=== PATIENT | male | born 1955 | race Caucasian/White ===

== ENCOUNTER 2017-12-02 15:28 | Inpatient (IN) | payer BC, OTHER ==
[2017-12-02] MEDS ORDERED: ASPIRIN 81 MG CHEWABLE TABLET ONE (16:24)
[2017-12-02] MEDS ORDERED: NA CHLORIDE 0.9% 500 ML ONE (16:24)
[2017-12-02 16:25] LABS: Absolute Lymphocytes (CBC) 1.4 K/uL (0.7-4.9); Absolute Monocytes 0.6 K/uL (0.1-1.3); Absolute Neutrophil 4.8 K/uL (1.8-8.0); Basophils % 0.5 % (0-1.3); Eosinophils % 0.9 % (0-4.4); Hematocrit 41.1 % (39.6-49.0); Lymphocytes % 20.7 % (15.3-44.8); MCH 29.7 pg (27.0-35.0); MCV 89.1 fL (80-100); MPV 8.6 fL (7.6-11.3); Monocytes % 8.6 % (3.3-12.3)
[2017-12-02 16:31] LABS: Protime INR 1.11
--- NOTE | 2017-12-02 16:32 | RAD REPORT ---
EXAM DESCRIPTION: RAD - Chest Single View - 12/02/2017 4:24 pm CLINICAL HISTORY: Chest pain. COMPARISON: None. FINDINGS: Portable technique limits examination quality. The lungs are grossly clear. The heart is upper limit normal in size with dual lead pacer/defibrillat or device present. No displaced fractures.Sternotomy wires present. IMPRESSION: No acute intrathoracic process suspected.
[2017-12-02 16:42] LABS: Urine Blood NEGATIVE (NEG); Urine Glucose NEGATIVE (NEG); Urine Protein NEGATIVE (NEG); Urine Specific Gravity 1.015 (1.005-1.030)
[2017-12-02 16:45] LABS: Potassium 4.1 mEq/L (3.6-5.0)
[2017-12-02 16:51] LABS: Albumin 4.5 g/dL (3.2-5.5); Bilirubin Direct 0.1 mg/dL (0-0.2); Bilirubin Total 0.6 mg/dL (0.3-1.2)
[2017-12-02 16:54] LABS: CKMB Creatine Kinase MB 2.6 ng/ml (0.3-4.0)
--- NOTE | 2017-12-02 16:56 | ER ---
Nurse's Notes [facility] Name: Kingston Garcia Age: 62 yrs Sex: Male : 1955 Arrival Date: 12/02/2017 Time: 15:32 Bed 7 Private MD: Diagnosis: Chest pain, unspecified;Essential (primary) hypertension;Weakness;Dizziness and giddiness;Ventricular tachycardia Presentation: 12/02 15:33 Presenting complaint: Patient states: Sunday, my defibrillator went off, since then i hj feel weak and dizzy; when i check my BP today, it was high, 167/92; denies chest pain and denies SOB;. Transition of care: patient was not received from another setting of care. Onset of symptoms was December 02, 2017. Care prior to arrival: None. 15:33 Method Of Arrival: Ambulatory 15:33 Acuity: AYALA 3 hj Triage Assessment: 15:36 General: Appears in no apparent distress. uncomfortable, Behavior is calm, cooperative, hj appropriate for age. Pain: Denies pain. Historical: - Allergies: 15:36 No Known Allergies; hj - Home Meds: 15:36 carvedilol 3.125 mg oral tab 1 tab 2 times per day [Active]; simvastatin 40 mg Oral tab hj 1 tab once daily [Active]; clopidogrel 75 mg oral tab 1 tab once daily [Active]; lisinopril 5 mg Oral tab 1 tab once daily [Active]; - PMHx: 15:36 Hyperlipidemia; Hypertension; hj - PSHx: 15:36 pacemaker; hj - Immunization history:: Adult Immunizations up to date. - Social history:: Smoking status: Patient/guardian denies using tobacco. Screenin:28 Abuse screen: Denies threats or abuse. Denies injuries from another. Nutritional hb screening: No deficits noted. Tuberculosis screening: No symptoms or risk factors identified. Fall Risk Total Iniguez Fall Scale indicates Low Risk Score (25-44 pts). Fall prevention measures have been instituted. Frequent Obs/Assesments occuring As available Patient and Family Educated on Fall Prevention Program and strategies. Assessment: 16:05 General: Appears in no apparent distress. Behavior is calm, cooperative. Pain: Denies hb pain. Neuro: Level of Consciousness is awake, alert, obeys commands, Oriented to person, place, time, situation, Mold Tooler are equal bilaterally Moves all extremities. Full function Gait is steady, Speech is normal, Facial symmetry appears normal, Pupils are PERRLA, Intact Reports dizziness, weakness. Cardiovascular: Heart tones S1 S2 present Capillary refill < 3 seconds Patient's skin is warm and dry. Respiratory: Airway is patent Trachea midline Respiratory effort is even, unlabored, Respiratory pattern is regular, symmetrical, Breath sounds are clear bilaterally. GI: No signs and/or symptoms were reported involving the gastrointestinal system. : No signs and/or symptoms were reported regarding the genitourinary system. EENT: No signs and/or symptoms were reported regarding the EENT system. Derm: No signs and/or symptoms reported regarding the dermatologic system. Skin is pink, warm \T\ dry. Musculoskeletal: No signs and/or symptoms reported regarding the musculoskeletal system. 17:00 Reassessment: Patient appears in no apparent distress at this time. No changes from hb previously documented assessment. Patient and/or family updated on plan of care and expected duration. Pain level reassessed. Patient is alert, oriented x 3, equal unlabored respirations, skin warm/dry/pink. Vital Signs: 15:37 BP 151 / 89; Pulse 86; Resp 18; Temp 98.3(TE); Pulse Ox 100% on R/A; Weight 79.38 kg; hj Height 5 ft. 10 in. (177.80 cm); Pain 0/10; 16:30 BP 136 / 84; Pulse 84; Resp 17; Pulse Ox 100% on R/A; Pain 0/10; hb 15:37 Body Mass Index 25.11 (79.38 kg, 177.80 cm) ED Course: 15:32 Patient arrived in ED. hj 15:34 Triage completed. hj 15:36 Arm band placed on left wrist. hj 15:40 Keyur Ramirez MD is Attending Physician. oswaldo 15:55 notified [employer] to send out a client service representative out to [employer] pts device. bd 16:05 Patient has correct armband on for positive identification. Bed in low position. Call hb light in reach. Side rails up X 1. software database architect on. Pulse ox on. NIBP on. 16:15 Inserted saline lock: 20 gauge in right forearm, using aseptic technique. Blood hb collected. 16:21 Michelle Palomo RN is Primary Nurse. hb 16:23 X-ray completed. Portable x-ray completed in exam room. Patient tolerated procedure jw2 well. 16:24 XRAY Chest (1 view) In Process Unspecified. EDMS 16:54 Uvaldo Ortiz MD is Hospitalizing Provider. [facility] 18:00 No provider procedures requiring assistance completed. Patient admitted, IV remains in hb place. Administered Medications: 16:19 Drug: Aspirin 81 mg Route: PO; hb 17:27 Follow up: Response: No adverse reaction hb 16:29 Drug: NS 0.9% 250 ml Route: IV; Rate: bolus; Site: right forearm; hb 17:15 Follow up: Response: No change in condition; IV Status: Completed infusion hb 17:16 Drug: NS 0.9% 1000 ml Route: IV; Rate: 75 ml/hr; Site: right forearm; hb 17:27 Drug: Coreg 3.125 mg Route: PO; hb 17:50 Follow up: Response: No change in condition hb 17:27 Drug: Lovenox 1 mg/kg Route: Sub-Q; Site: abdomen; hb 17:50 Follow up: Response: No change in condition hb 17:27 Drug: Lisinopril 5 mg Route: PO; hb 17:50 Follow up: Response: No change in condition hb Outcome: 16:55 Decision to Hospitalize by Provider. oswaldo 18:00 Patient left the ED. aj1 18:00 Admitted to Med/surg accompanied by tech, via wheelchair, room 229, with chart, Report hb called to LAZARA Barton 18:00 Condition: stable 18:00 Instructed on the need for admit, Demonstrated understanding of instructions. Signatures: Dispatcher [employer] EDMI Lula Roberts Angela, RN RN aj1 Keyur Ramirez MD MD cha Joaquin, Henry, RN RN hj Wailes, Jenni jw2 Michelle Palomo RN RN hb Corrections: (The following items were deleted from the chart) 18:12 18:00 Admitted to Med/surg accompanied by tech, via wheelchair, room 228, with chart, hb Report called to LAZARA Barton hb
--- NOTE | 2017-12-02 16:56 | EDPHYS ---
Physician Documentation [facility] Name: Kingston Garcia Age: 62 yrs Sex: Male : 1955 Arrival Date: 12/02/2017 Time: 15:32 Bed 7 Private MD: ED Physician Keyur Ramirez HPI: 12/02 15:46 This 62 yrs old Male presents to ER via Ambulatory with complaints of High oswaldo Blood Pressure, Weakness, Dizziness. 15:46 The patient has elevated blood pressure and discovered this at home. Onset: The oswaldo symptoms/episode began/occurred 3 day(s) ago. Historical: - Allergies: 15:36 No Known Allergies; hj - Home Meds: 15:36 carvedilol 3.125 mg oral tab 1 tab 2 times per day [Active]; simvastatin 40 mg Oral tab hj 1 tab once daily [Active]; clopidogrel 75 mg oral tab 1 tab once daily [Active]; lisinopril 5 mg Oral tab 1 tab once daily [Active]; - PMHx: 15:36 Hyperlipidemia; Hypertension; hj - PSHx: 15:36 pacemaker; hj - Immunization history:: Adult Immunizations up to date. - Social history:: Smoking status: Patient/guardian denies using tobacco. ROS: 15:47 Constitutional: Negative for fever, chills, and weight loss, Eyes: Negative for injury, oswaldo pain, redness, and discharge, ENT: Negative for injury, pain, and discharge, Neck: Negative for injury, pain, and swelling, Respiratory: Negative for shortness of breath, cough, wheezing, and pleuritic chest pain, Abdomen/GI: Negative for abdominal pain, nausea, vomiting, diarrhea, and constipation, Back: Negative for injury and pain, : Negative for injury, bleeding, discharge, and swelling, MS/Extremity: Negative for injury and deformity, Skin: Negative for injury, rash, and discoloration, Psych: Negative for depression, anxiety, suicide ideation, homicidal ideation, and hallucinations, Allergy/Immunology: Negative for hives, rash, and allergies, Endocrine: Negative for neck swelling, polydipsia, polyuria, polyphagia, and marked weight changes, Hematologic/Lymphatic: Negative for swollen nodes, abnormal bleeding, and unusual bruising. 15:47 Cardiovascular: Positive for palpitations. 15:47 Neuro: Positive for dizziness, weakness. Exam: 15:47 Constitutional: This is a well developed, well nourished patient who is awake, alert, oswaldo and in no acute distress. Head/Face: Normocephalic, atraumatic. Eyes: Pupils equal round and reactive to light, extra-ocular motions intact. Lids and lashes normal. Conjunctiva and sclera are non-icteric and not injected. Cornea within normal limits. Periorbital areas with no swelling, redness, or edema. ENT: Nares patent. No nasal discharge, no septal abnormalities noted. Tympanic membranes are normal and external auditory canals are clear. Oropharynx with no redness, swelling, or masses, exudates, or evidence of obstruction, uvula midline. Mucous membranes moist. Neck: Trachea midline, no thyromegaly or masses palpated, and no cervical lymphadenopathy. Supple, full range of motion without nuchal rigidity, or vertebral point tenderness. No Meningismus. Chest/axilla: Normal chest wall appearance and motion. Nontender with no deformity. No lesions are appreciated. Cardiovascular: Regular rate and rhythm with a normal S1 and S2. No gallops, murmurs, or rubs. Normal PMI, no JVD. No pulse deficits. Respiratory: Lungs have equal breath sounds bilaterally, clear to auscultation and percussion. No rales, rhonchi or wheezes noted. No increased work of breathing, no retractions or nasal flaring. Abdomen/GI: Soft, non-tender, with normal bowel sounds. No distension or tympany. No guarding or rebound. No evidence of tenderness throughout. Back: No spinal tenderness. No costovertebral tenderness. Full range of motion. Male : Normal genitalia with no discharge or lesions. Skin: Warm, dry with normal turgor. Normal color with no rashes, no lesions, and no evidence of cellulitis. MS/ Extremity: Pulses equal, no cyanosis. Neurovascular intact. Full, normal range of motion. Neuro: Awake and alert, GCS 15, oriented to person, place, time, and situation. Cranial nerves II-XII grossly intact. Motor strength 5/5 in all extremities. Sensory grossly intact. Cerebellar exam normal. Normal gait. Psych: Awake, alert, with orientation to person, place and time. Behavior, mood, and affect are within normal limits. Vital Signs: 15:37 BP 151 / 89; Pulse 86; Resp 18; Temp 98.3(TE); Pulse Ox 100% on R/A; Weight 79.38 kg; hj Height 5 ft. 10 in. (177.80 cm); Pain 0/10; 16:30 BP 136 / 84; Pulse 84; Resp 17; Pulse Ox 100% on R/A; Pain 0/10; hb 15:37 Body Mass Index 25.11 (79.38 kg, 177.80 cm) hj MDM: 15:40 Patient medically screened. [facility] 15:47 Data reviewed: vital signs, nurses notes, lab test result(s), EKG, radiologic studies, oswaldo plain films. 12/02 15:46 Order name: Basic Metabolic Panel [facility] 12/02 15:46 Order name: BNP [facility] 12/02 15:46 Order name: CBC with Diff [facility] 12/02 15:46 Order name: Ckmb; Complete Time: 17:04 [facility] 12/02 15:46 Order name: CPK; Complete Time: 17:04 [facility] 12/02 15:46 Order name: LFT's; Complete Time: 17:04 [facility] 12/02 15:46 Order name: Magnesium; Complete Time: 17:04 [facility] 12/02 15:46 Order name: PT-INR; Complete Time: 16:35 [facility] 12/02 15:46 Order name: Ptt, Activated; Complete Time: 16:35 [facility] 12/02 15:46 Order name: Troponin (emerg Dept Use Only); Complete Time: 16:52 [facility] 12/02 15:46 Order name: Lipase; Complete Time: 17:04 [facility] 12/02 15:47 Order name: Basic Metabolic Panel; Complete Time: 17:04 [facility] 12/02 15:47 Order name: BNP B-Type Natriuretic Peptide [facility] 12/02 15:47 Order name: CBC with Automated Diff; Complete Time: 16:31 [facility] 12/02 15:46 Order name: XRAY Chest (1 view); Complete Time: 16:35 [facility] 12/02 15:46 Order name: EKG; Complete Time: 15:47 [facility] 12/02 15:46 Order name: Cardiac monitoring; Complete Time: 16:29 [facility] 12/02 15:46 Order name: EKG - Nurse/Tech; Complete Time: 16:29 [facility] 12/02 15:46 Order name: IV Saline Lock; Complete Time: 16:19 [facility] 12/02 15:46 Order name: Labs collected and sent; Complete Time: 16:19 oswaldo 12/02 15:46 Order name: O2 Per Protocol; Complete Time: 16:19 [facility] 12/02 16:36 Order name: Urine Dipstick--Ancillary (enter results); Complete Time: 16:52 bd 12/02 16:58 Order name: CONS Physician Consult [facility] 12/02 17:32 Order name: Diet Heart Healthy; Complete Time: 17:32 hb 12/02 15:46 Order name: O2 Sat Monitoring; Complete Time: 16:19 [facility] 12/02 15:46 Order name: Urine Dipstick-Ancillary (obtain specimen); Complete Time: 16:36 [facility] Administered Medications: 16:19 Drug: Aspirin 81 mg Route: PO; hb 17:27 Follow up: Response: No adverse reaction hb 16:29 Drug: NS 0.9% 250 ml Route: IV; Rate: bolus; Site: right forearm; hb 17:15 Follow up: Response: No change in condition; IV Status: Completed infusion hb 17:16 Drug: NS 0.9% 1000 ml Route: IV; Rate: 75 ml/hr; Site: right forearm; hb 17:27 Drug: Coreg 3.125 mg Route: PO; hb 17:50 Follow up: Response: No change in condition hb 17:27 Drug: Lovenox 1 mg/kg Route: Sub-Q; Site: abdomen; hb 17:50 Follow up: Response: No change in condition hb 17:27 Drug: Lisinopril 5 mg Route: PO; hb 17:50 Follow up: Response: No change in condition hb Disposition: 12/02/17 16:55 Hospitalization ordered by Uvaldo Ortiz for Inpatient Admission. Preliminary diagnosis are Chest pain, unspecified, Essential (primary) hypertension, Weakness, Dizziness and giddiness, Ventricular tachycardia. - Bed requested for Telemetry/MedSurg (Inpatient). - Status is Inpatient Admission. aj1 - Condition is Fair. - Problem is new. - Symptoms have improved. UTI on Admission? No Signatures: Dispatcher [employer] [facility] Lula Roberts Angela, RN RN aj1 Keyur Ramirez MD MD cha Joaquin, Henry, RN RN Michelle Palomo RN RN hb
[2017-12-02] MEDS ORDERED: ENOXAPARIN 80 MG/0.8 ML SQ ONE (17:43)
[2017-12-02] MEDS ORDERED: CARVEDILOL 6.25 MG TAB ONE (17:43)
[2017-12-02] MEDS ORDERED: LISINOPRIL 5 MG TAB ONE (17:43)
[2017-12-02] MEDS ORDERED: HALOPERIDOL LACT 5 MG/ML INJ IM PRN (18:20)
[2017-12-02] MEDS ORDERED: ACETAMINOPHEN 500 MG TAB PO PRN (18:20)
[2017-12-02] MEDS ORDERED: MORPHINE 4 MG/ML SYR IV PRN (18:20)
[2017-12-02] MEDS ORDERED: FLUMAZENIL 0.1 MG/ML (5 mL VIAL) IV PRN (18:20)
[2017-12-02] MEDS ORDERED: NITROGLYCERIN 0.4 MG/TAB SL PRN (18:20)
[2017-12-02] MEDS ORDERED: LORazepam 2 MG/ML VIAL IV PRN (18:20)
[2017-12-02] MEDS: ENOXAPARIN 40 MG/0.4 ML SQ SCH (18:30)
[2017-12-02] MEDS: ATORVASTATIN 40 MG TAB PO SCH (20:09)
[2017-12-02] MEDS: METOPROLOL TAR 25 MG TAB PO SCH (20:10)
[2017-12-02] MEDS ORDERED: PNEUMOCOCCAL VACCINE 0.5 ML IMVAC ONE (21:00)
[2017-12-02] MEDS ORDERED: INFLUENZA VACCINE (for 5y+) 0.5 ML DOSE IMVAC ONE (21:00)
--- NOTE | 2017-12-03 02:50 | HP ---
Date of Admission: 12/02/2017 Consultants: Dr. Aaron with Cardiology. Chief Complaint: Dizziness and defibrillator firing. History Of Present Illness: The patient is a 62-year-old male with past medical history of coronary artery disease status post CABG, stents, and peripheral vascular disease status post bypass, hypertension, hyperlipidemia, alcohol dependence, who is traveling for work from [place] and was in his usual state of health until Sunday when his defibrillator went off. The patient reports feeling dizzy, almost "blacking out" and he notices felt his defibrillator go off. The patient since then has been complaining of some dizziness and elevated blood pressure. The patient states he feels lightheadedness, especially with positional change. Otherwise, no falls or syncopal episodes. The patient denies any significant chest tightness. The patient came into the ER for further evaluation due to elevated blood pressure. When the patient arrived, his vital signs showed a blood pressure of 151/89. His workup revealed a troponin level of 0.33. Otherwise, his white count was negative. Chest x-ray did not show any acute changes. The patient had his AICD dual chamber evaluated by the [employer] rep and apparently, the patient had ventricular tachycardia in the rate of 200 when his defibrillator went off. The patient's symptoms are constant, moderate, progressively worsening. No alleviating or aggravating factors. The patient was then given full-dose anticoagulation started on chest pain guidelines and referred for admission. Cardiology was consulted by the ER. When seen in the ER, the patient was awake, alert, oriented x3, not in acute distress. Past Medical History: Coronary artery disease status post CABG and stents, peripheral vascular disease status post aortofemoral bypass, hypertension, and hyperlipidemia. Allergies: NO KNOWN DRUG ALLERGIES. Medications: Reviewed. Social History: The patient quit smoking after his first heart attack, smoked for about 25 years heavily. The patient drinks on a regular basis daily about 4 beers a day. No illicit drug use. The patient is active, independent in his activities of daily living, currently working. Family History: Positive for coronary artery disease. Review of Systems: An 11-point system reviewed, negative, negative except as per HPI. Physical Examination: Vital Signs: Temperature 98.3, heart rate 86, blood pressure 151/89, respirations 18, O2 100% on room air. General: Awake, alert, oriented x3. No acute distress. Appears older than stated age. HEENT: Normocephalic, atraumatic. PERRLA. EOMI. Moist mucous membranes. Poor dentition. Oropharynx is clear. The patient does have some erythema on the surrounding mucous, consistent with possible ulceration. Conjunctiva anicteric. Neck: Supple. No JVD. Trachea midline. CV: S1, S2. No murmurs. Peripheral pulses are present bilaterally. Respiratory: Clear to auscultation bilaterally. No wheezing. No stridor. No use of accessory muscles. Gastrointestinal: Abdomen is soft, nontender, nondistended. Positive bowel sounds. No guarding or rigidity. Extremities: No clubbing, cyanosis, or edema. No calf tenderness. Neuro: Cranial nerves 2 through 12 intact grossly, 5/5 strength bilateral upper lower extremities. Sensation intact to light touch. Speech is normal. Integumentary: Skin is warm to touch. No rashes. Normal skin turgor. Psych: Mood is okay. Affect is full. Insight and judgment are good. Laboratory Data: Sodium 138, potassium 4.1, chloride 102, CO2 26, BUN 10, creatinine 1.03, glucose 118, calcium 9.9, magnesium 2. Troponin 0.33. BNP 426. INR 1.11. WBC 7, H and H 13.7/41.1, and platelets 188. UA, negative. Chest x-ray, personally reviewed, shows no acute intrathoracic process suspected. Assessment And Plan: A 62-year-old male with, 1. Dizziness. 2. Elevated troponin level, likely secondary to defibrillator firing. 3. Uncontrolled hypertension. We will resume home medications and add beta- rylee. 4. Ventricular tachycardia with subsequent defibrillator. Discharge has been evaluated by [employer] rep. Dr. Aaron with Cardiology has been consulted. 5. Hyperlipidemia: We will continue on statin. 6. Peripheral vascular disease status post aortobifemoral bypass. 7. Coronary artery disease status post CABG and stent, [place] artery and [place] heart without angina. Plan: Admit the patient to Med-Surg, place as an inpatient. /KASSANDRA Voice ID: [id number] [facility] HOSPITALBobbi
[2017-12-03 03:20] LABS: Absolute Lymphocytes (CBC) 1.9 K/uL (0.7-4.9); Absolute Monocytes 0.6 K/uL (0.1-1.3); Absolute Neutrophil 4.1 K/uL (1.8-8.0); Basophils % 0.8 % (0-1.3); Eosinophils % 1.5 % (0-4.4); Hematocrit 37.1 % (39.6-49.0); Lymphocytes % 28.5 % (15.3-44.8); MCH 30.3 pg (27.0-35.0); MCV 88.8 fL (80-100); MPV 8.4 fL (7.6-11.3); RBC Red Blood Cell Count 4.18 M/uL (4.33-5.43)
[2017-12-03 03:49] LABS: Potassium 3.5 mEq/L (3.6-5.0)
--- NOTE | 2017-12-03 07:59 | EKG ---
Test Date: 2017-12-02 Test Time: 15:22:19 [employer]usement Park Entertainer: SWG MEASUREMENT RESULTS: Intervals: Rate: 81 [place]: 224 QRSD: 130 QT: 434 QTc: 504 [place]: P: [place]: 224 QRS: -55 T: 105 INTERPRETIVE STATEMENTS: Demand pacemaker, interpretation is based on intrinsic rhythm Sinus rhythm with 1st degree AV block with occasional and consecutive premature ventricular complexes Left axis deviation Right bundle branch block Left ventricular hypertrophy with repolarization abnormality Inferior infarct, age undetermined Abnormal ECG No previous ECG available for comparison Electronically Signed On 12-03-17 07:58:41 CDT by Olivier Saldivar
[2017-12-03] MEDS: THIAMINE HCL 100 MG TABLET PO SCH (09:00)
[2017-12-03] MEDS: ENOXAPARIN 40 MG/0.4 ML SQ SCH (09:05)
[2017-12-03] MEDS: FOLIC ACID 1 MG TABLET PO SCH (09:06)
[2017-12-03] MEDS: LISINOPRIL 10 MG TAB PO SCH (09:06)
[2017-12-03] MEDS: CLOPIDOGREL 75 MG TABLET PO SCH (09:06)
[2017-12-03] MEDS: MULTIVITAMIN TAB PO SCH (09:06)
[2017-12-03] MEDS: ASPIRIN EC 81 MG TAB PO SCH (09:06)
[2017-12-03] MEDS: METOPROLOL TAR 25 MG TAB PO SCH ×2 (09:06→21:11)
[2017-12-03] MEDS: PANTOPRAZOLE 40MG TABLET PO SCH (09:09)
--- NOTE | 2017-12-03 11:39 | ECHO ---
HEIGHT: 5 ft 10 in WEIGHT: 175 lb 0 oz DATE OF STUDY: 12-03-[address]: Uvaldo Ortiz MD 2-DIMENSIONAL: YES M.MODE: YES DOPPLER: YES COLOR FLOW: YES TDS: NO PORTABLE: NO DEFINITY: NO BUBBLE STUDY: NO DIAGNOSIS: CHEST PAIN CARDIAC HISTORY: CATHERIZATION: YES SURGERY: YES PROSTHETIC VALVE: NO PACEMAKER: YES MEASUREMENTS (cm) DIASTOLIC (NORMALS) SYSTOLIC (NORMALS) IVSd 1.1 (0.6-1.2) LA Diam 4.4 (1.9-4.0) LVEF 22% LVIDd 6.6 (3.5-5.7) LVIDs 5.9 (2.0-3.5) %FS 10% LVPWd 1.0 (0.6-1.2) Ao Diam 3.1 (2.0-3.7) 2 DIMENSIONAL ASSESSMENT: RIGHT ATRIUM: DILATED LEFT ATRIUM: DILATED RIGHT VENTRICLE: PACEMAKER CATHETER LEFT VENTRICLE: DILATED TRICUSPID VALVE: NORMAL MITRAL VALVE: NORMAL PULMONIC VALVE: NORMAL AORTIC VALVE: NORMAL PERICARDIAL EFFUSION: NONE AORTIC ROOT: NORMAL LEFT VENTRICULAR WALL MOTION: SEVERE GLOBAL HYPOKINESIS DOPPLER/COLOR FLOW: MILD AORTIC, MITRAL AND TRICUSPID REGURGITATION. ESTIMATED RIGHT VENTRICULAR SYSTOLIC PRESSURE 40mmHg. (MILD PULMONARY HYPERTENSION) COMMENTS: DILATED LEFT ATRIUM, RIGHT ATRIAUM AND LEFT VENTRICLE. PACEMAKER IN RIGHT VENTRICLE. SEVERELY DEPRESSED LEFT VENTRICULAR EJECTION FRATION. MILD AORTIC, MITRAL AND TRICUSPID REGURGITATION. MILD PULMONARY HYPERTENSION. TECHNOLOGIST: Pancho
--- NOTE | 2017-12-03 11:57 | CON ---
Identification: A 62-year-old man. Chief Complaint: Blood pressure out of control. History Of Present Illness: Mr. Garcia is a gentleman, who had bypass surgery in the . He has h ad numerous stents. He has had stents for peripheral arterial disease as well. He had stents semi-e mergently when his heart become unstable after peripheral artery stents were tried in 2009 and a defi brillator was implanted and it has not gone off. Until about 6 days ago, it went off. He had done s omething a little bit physically demanding, felt dizzy, felt like he was going to faint and did faint , and then he was awake enough to feel it shocked him and then his dizziness went away. Since that p oint, his defibrillator has been interrogated. It was interrogated yesterday, 5 days after the event , and we could tell that he had monomorphic VT at a rate of 200. Since he has been here, he has not had chest pain, but he does have abnormal cardiac enzymes. His abnormal cardiac enzymes are troponin s, they are 0.33, 0.22, 0.29, even the first 1 was abnormal. His electrocardiogram does not show any injury pattern. It shows that there is an AV sequential pacing. There was intermittent atrial and ventricular pacing and lot of PVCs. There was right bundle-branch block, left ventricular hypertroph y, and inferior infarction. His echocardiogram was being done while I was present. His EF is in the 25% range. There appeared to be global hypokinesis. He normally lives in [place]. His bypass surg gabriela, stents, and defibrillator all were put in [place]. He intends to live in the [place] area to be o n a construction project or from 2-5 years. Outpatient Medications: Carvedilol, aspirin, simvastatin, lisinopril, omeprazole, and clopidogrel. Allergies: HE DENIES ANY ALLERGIES. Social History: He denies tobacco use, although he did smoke until 1995 when he had his MD and bypas s surgery. Past Medical History: No history of malignancy, hormone problems. No diabetes. Physical Examination: General: He is 5 feet 10 inches, 175 pounds. Appears to be his stated age. Alert, oriented, pleasa nt. Lungs: Clear. Heart: Reveals an S3 gallop. There is a 1 to 2/6 holosystolic murmur. No diastolic murmur. Extremities: No cyanosis, clubbing, or edema. Distal pulses palpable. Impression: The patient may have had an acute coronary event that caused this. The elevated enzymes may be due to that or due to the shock itself. The cause for the ventricular tachycardia is unclear . I think the patient needs to undergo a cardiac cath, possible revascularization, and needs to esta blish cardiac care in the area. He may have already established care with a physician in [place], but has not seen him yet. YOU/KASSANDRA Voice ID: [id number] Report ID: [id number]
--- NOTE | 2017-12-03 15:52 | P.PN ---
Subjective Date of Service: 12/03/17 Chief Complaint: Weakness Patient seen and examined at bedside with RN. Case discussed with cardiology. Currently patient has no complaints to offer. denies having any chest pain at this time. He has been scheduled for cardiac catheterization tomorrow morning Review of Systems General: As per HPI Physical Examination - Vital Signs Temperature: 96.8 F Blood Pressure: 124/65 Pulse: 67 Respirations: 16 Pulse Ox (%): 95 - Physical Exam General: Alert, In no apparent distress, Oriented x3 HEENT: Atraumatic, PERRLA, EOMI Neck: Supple, JVD not distended Respiratory: Clear to auscultation bilaterally, Normal air movement Cardiovascular: Regular rate/rhythm, Normal S1 S2 Gastrointestinal: Normal bowel sounds, No tenderness Musculoskeletal: No tenderness Integumentary: No rashes Neurological: Normal speech, Normal tone, Normal affect Lymphatics: No axilla or inguinal lymphadenopathy - Studies Laboratory Data (last 24 hrs) 12/02/17 16:15: PT 13.1 H, INR 1.11, APTT 27.7 12/02/17 16:15: WBC 7.0, Hgb 13.7, Hct 41.1, Plt Count 188 12/02/17 16:15: B-Natriuretic Peptide 426 H 12/02/17 16:15: Sodium 138, Potassium 4.1, BUN 10, Creatinine 1.03, Glucose 118 , Magnesium 2.0, Total Bilirubin 0.6, AST 31, ALT 18, Alkaline Phosphatase 57, Lipase 27 Medications List Reviewed: Yes Assessment & Plan - Problems (Diagnosis) (1) NSTEMI (non-ST elevated myocardial infarction) Current Visit: Yes Status: Acute Plan: Elevated troponin with Nonspecific ST changes -Cardiology consulted. Appreciated Reccs -Cardiac Cath petey AM -ECHO with EF of 23% and Global Hypokensis -Defribillator in place. -ACS meds (2) CHF (congestive heart failure) Current Visit: Yes Status: Chronic Qualifiers: Heart failure type: combined systolic and diastolic Heart failure chronicity: acute on chronic Qualified Code(s): I50.43 - Acute on chronic combined systolic (congestive) and diastolic (congestive) heart failure (3) Defibrillator discharge Current Visit: Yes Status: Acute (4) Hypertension Onset Date: 12/03/17 Current Visit: Yes Status: Chronic Qualifiers: Hypertension type: essential hypertension Qualified Code(s): I10 - Essential (primary) hypertension Discharge Plan: Home Plan to discharge in: 24 Hours - Code Status/Comfort Care Code Status Assessed: Yes Critical Care: No
[2017-12-03] MEDS ORDERED: POTASSIUM 25 MEQ EFFERV TAB PO ONE (17:53)
[2017-12-03] MEDS: ATORVASTATIN 40 MG TAB PO SCH (21:11)
[2017-12-04] MEDS ORDERED: NA CHLORIDE 0.9% 1,000 ML ONE (05:08)
[2017-12-04 06:14] LABS: Magnesium 2.1 mg/dL (1.8-2.5); Potassium 4.1 mEq/L (3.6-5.0)
[2017-12-04] MEDS ORDERED: LIDOCAINE 1% 20 ML MDV ONE (07:13)
[2017-12-04] MEDS ORDERED: HEPA 1000U/500MLS 2,000 UNIT/1,000 ML BAG IV ONE (07:13)
[2017-12-04] MEDS: PANTOPRAZOLE 40MG TABLET PO SCH (07:30)
[2017-12-04] MEDS ORDERED: FENTANYL CITR 100 MCG/2 ML ONE (08:01)
[2017-12-04] MEDS ORDERED: NA CHLORIDE 0.9% 0 ML IV ONE (08:01)
[2017-12-04] MEDS ORDERED: ATROPINE SULF 1 MG/10 ML SYR IV ONE (08:01)
[2017-12-04] MEDS ORDERED: MIDAZOLAM HCL 2 MG/2 ML INJ ONE ×2 (08:01→08:17)
[2017-12-04] MEDS: LISINOPRIL 10 MG TAB PO SCH (09:00)
[2017-12-04] MEDS: METOPROLOL TAR 25 MG TAB PO SCH (09:00)
[2017-12-04] MEDS: FOLIC ACID 1 MG TABLET PO SCH (09:00)
[2017-12-04] MEDS: THIAMINE HCL 100 MG TABLET PO SCH (09:00)
[2017-12-04] MEDS: ENOXAPARIN 40 MG/0.4 ML SQ SCH (09:00)
[2017-12-04] MEDS: MULTIVITAMIN TAB PO SCH (09:00)
[2017-12-04] MEDS: ASPIRIN EC 81 MG TAB PO SCH (09:00)
[2017-12-04] MEDS: CLOPIDOGREL 75 MG TABLET PO SCH (09:00)
--- NOTE | 2017-12-04 17:22 | P.DS ---
Admission Date: 12/02/17 Discharge Date: 12/04/17 Disposition: ROUTINE DISCHARGE Discharge Condition: GOOD Reason for Admission: Weakness Consultations: Cardiology - Dr Aaron Procedures: Cardiac Catherization - Problems (1) NSTEMI (non-ST elevated myocardial infarction) Status: Acute (2) CHF (congestive heart failure) Status: Chronic Qualifiers: Heart failure type: combined systolic and diastolic Heart failure chronicity: acute on chronic Qualified Code(s): I50.43 - Acute on chronic combined systolic (congestive) and diastolic (congestive) heart failure (3) Defibrillator discharge Status: Acute (4) Hypertension Onset Date: 12/03/17 Status: Chronic Qualifiers: Hypertension type: essential hypertension Qualified Code(s): I10 - Essential (primary) hypertension Brief History of Present Illness: The patient is a 62-year-old male with past medical history of coronary artery disease status post CABG, stents, and peripheral vascular disease status post bypass, hypertension, hyperlipidemia, alcohol dependence, who is traveling for work from [place] and was in his usual state of health until Sunday when his defibrillator went off. The patient reports feeling dizzy, almost "blacking out " and he notices felt his defibrillator go off. The patient since then has been complaining of some dizziness and elevated blood pressure. The patient states he feels lightheadedness, especially with positional change. Otherwise, no falls or syncopal episodes. The patient denies any significant chest tightness. The patient came into the ER for further evaluation due to elevated blood pressure. When the patient arrived, his vital signs showed a blood pressure of 151/89. His workup revealed a troponin level of 0.33. Otherwise, his white count was negative. Chest x-ray did not show any acute changes. The patient had his AICD dual chamber evaluated by the [employer] rep and apparently, the patient had ventricular tachycardia in the rate of 200 when his defibrillator went off. The patient's symptoms are constant, moderate, progressively worsening. No alleviating or aggravating factors. The patient was then given full-dose anticoagulation started on chest pain guidelines and referred for admission. Cardiology was consulted by the ER. When seen in the ER, the patient was awake, alert, oriented x3, not in acute Hospital Course: Is overall patient remained stable while here in the hospital Patient was initially admitted to the hospital for an NSTEMI and Vtach. Cardiology was consulted who did a cardiac catheterization on the patient. Patient was found to have severe stenosis of the coronary arteries as outlined by the cardiac catheterization report. Patient risk of surgery however outweighs the benefit and thus medical management was choosen. Patient was started on a beta-rylee statin and MARSHA-inhibitor along with aspirin and Plavix. Patient was also asked to make diet modification along with medication compliance. Patient was then discharged home to follow up with cardiology in the clinic in about 1 week. At that time patient will be referred to an EP physician in [place]. Patient was thus discharged home under stable condition with prescriptions for beta-rylee staff inhibitor and follow up appointment with the cardiology. Vital Signs/Physical Exam: Temp Pulse Resp BP Pulse Ox 97.0 F 63 16 108/62 93 12/04/17 12:00 12/04/17 12:00 12/04/17 12:00 12/04/17 12:00 12/04/17 12:00 General: Alert, In no apparent distress, Oriented x3 HEENT: Atraumatic, PERRLA, EOMI Neck: Supple, JVD not distended Respiratory: Clear to auscultation bilaterally, Normal air movement Cardiovascular: Regular rate/rhythm, Normal S1 S2 Gastrointestinal: Normal bowel sounds, No tenderness Musculoskeletal: No tenderness Integumentary: No rashes Neurological: Normal speech, Normal tone, Normal affect Lymphatics: No axilla or inguinal lymphadenopathy Laboratory Data at Discharge: WBC 6.8 K/uL (4.3-10.9) 12/03/17 03:07 Hgb 12.6 g/dL (13.6-17.9) L 12/03/17 03:07 Hct 37.1 % (39.6-49.0) L 12/03/17 03:07 Plt Count 167 K/uL (152-406) 12/03/17 03:07 PT 13.1 SECONDS (9.5-12.5) H 12/02/17 16:15 INR 1.11 12/02/17 16:15 APTT 27.7 SECONDS (24.3-36.9) 12/02/17 16:15 Sodium 141 mEq/L (135-145) 12/04/17 05:30 Potassium 4.1 mEq/L (3.6-5.0) 12/04/17 05:30 BUN 15 mg/dL (6-20) 12/04/17 05:30 Creatinine 1.07 mg/dL (0.61-1.24) 12/04/17 05:30 Glucose 115 mg/dL (65-120) 12/04/17 05:30 Magnesium 2.1 mg/dL (1.8-2.5) 12/04/17 05:30 Total Bilirubin 0.6 mg/dL (0.3-1.2) 12/02/17 16:15 AST 31 IU/L (10-42) 12/02/17 16:15 ALT 18 IU/L (10-60) 12/02/17 16:15 Alkaline Phosphatase 57 IU/L (42-121) 12/02/17 16:15 Troponin I 0.28 ng/mL (<0.03) H 12/03/17 10:42 B-Natriuretic Peptide 426 pg/ml (<=100) H 12/02/17 16:15 Triglycerides 154 mg/dL (35-160) 12/03/17 03:07 Cholesterol 180 mg/dL (<200) 12/03/17 03:07 HDL Cholesterol 61 mg/dL (27-67) 12/03/17 03:07 Cholesterol/HDL Ratio 2.95 12/03/17 03:07 Lipase 27 U/L (22-51) 12/02/17 16:15 Home Medications: Aspirin [Aspirin EC 81 MG] 81 mg PO DAILY 12/02/17 Carvedilol [Coreg*] 3.125 mg PO BID 12/02/17 Clopidogrel Bisulfate [Clopidogrel] 75 mg PO DAILY 12/02/17 Omeprazole 20 mg PO DIRECTED PRN 12/02/17 Simvastatin 40 mg PO DAILY 12/02/17 Lisinopril [Prinivil*] 10 mg PO DAILY #30 tab 12/04/17 Pantoprazole [Protonix Tab*] 40 mg PO ACB #30 tab 12/04/17 New Medications: Lisinopril [Prinivil*] 10 mg PO DAILY #30 tab Pantoprazole [Protonix Tab*] 40 mg PO ACB #30 tab Patient Discharge Instructions: Please f/u PCP and Cardiology in 1 week post discharge. NO new medication. Continue taking all medication as prescribed Diet: Regular Activity: Ad everardo Followup: Kailash Aaron MD [ACTIVE - CAN ADMIT] - 1 Week Girish Thayer, DO [ACTIVE - CAN ADMIT] - 1 Week
--- NOTE | 2017-12-05 05:25 | OP ---
Surgeon: Kailash Aaron MD Pneumatic Tester Mechanic: Nurse, Jg Knott. The plan is to discharge him sometime later on today and would like to see him in the office as an ou tpatient in the next week or 2. Mr. Garcia was admitted on 12/02/[address] Thayer for recent AICD shock and weakness and CHF. He h as a positive troponin. Dr. Olivier Saldivar saw him yesterday and scheduled him for a heart catheteriza tion for today as an inpatient. Description Of Procedure: He was brought to the lab tech prepped and draped in the routine sterile f ashion. He was given 2 mg for sedation which did not work and eventually, ended up with 6 mg of Vers ed for IV sedation. The patient has a history of alcohol abuse. A 6-Luxembourger sheath was introduced in the right common femoral artery. It was obvious that he had an aortobifemoral bypass. This sheath was introduced in the right common femoral artery bypass arm and pressure was used to obtain hemostas is after the procedure. The patient had a normal left main or normal LAD. He had a normal diagonal. Defibrillators and pacemakers were obvious on the fluoroscopy. His RCA was completely occluded. H is RCA graft was completely occluded with what appears to be evidence of many stents in the RCA graft . Aortic root showed no evidence of HOBSON or ISA, a vein graft occlusion to the OM and vein graft oc clusion to the RCA. LV-gram was not done. The patient tolerated the procedure well. Complications: There were no complications. Estimated Blood Loss: 5 cc. Conscious Sedation: 30 minutes. Final Diagnosis: Severe coronary artery disease, a medical therapy, status post AICD and biventricul ar pacemaker. The patient needs to be on beta-blockers, MARSHA inhibitors, as well as Lasix. He is to be on statins. He needs to be on aspirin. He is to try to quit his alcohol intake. Operators: Kailash Aaron MD. WILMAN/KASSANDRA Voice ID: [id number] Report ID: [id number]
== END 2017-12-04 15:52 | disposition home or self-care (01) | DRG 280 ==
LOC: ER 15:28 → ERHOLD 16:56 → 2ND 17:49
PROVIDERS: ADMIT Family Medicine; ATTEND Family Medicine
PROC: B300YZZ Plain Radiography of Thoracic Aorta using Other Contrast (ICD-10-PCS; principal; 2017-12-04)
PROC: B202YZZ Plain Radiography of Single Coronary Artery Bypass Graft using Other Contrast (ICD-10-PCS; 2017-12-04)
PROC: B201YZZ Plain Radiography of Multiple Coronary Arteries using Other Contrast (ICD-10-PCS; 2017-12-04)
DX: I21.4 Non-ST elevation (NSTEMI) myocardial infarction (principal); I50.43 Acute on chronic combined systolic (congestive) and diastolic (congestive) heart failure; I47.2 Ventricular tachycardia; I25.810 Atherosclerosis of coronary artery bypass graft(s) without angina pectoris; I25.10 Atherosclerotic heart disease of native coronary artery without angina pectoris; I11.0 Hypertensive heart disease with heart failure; I73.9 Peripheral vascular disease, unspecified; E78.5 Hyperlipidemia, unspecified
CPT/HCPCS: 36415; 71045; 80048; 80061; 80076; 81003; 82550; 82553; 83690; 83735; 83880; 84484; 85025; 85610; 85730; 90670; 93005; 93306; 93455; 93567; 94760; 96365; 96372; 99285; C1893; J0583; J1650; J2250; J3010; J7030

== ENCOUNTER 2018-08-01 07:11 | Day surgery (SDC) | payer BC ==
[2018-07-30 10:11] LABS: Absolute Lymphocytes (CBC) 1.2 K/uL (0.7-4.9); Absolute Monocytes 0.4 K/uL (0.1-1.3); Absolute Neutrophil 2.7 K/uL (1.8-8.0); Basophils % 0.7 % (0-1.3); Eosinophils % 1.9 % (0-4.4); Hematocrit 38.4 % (39.6-49.0); Lymphocytes % 27.7 % (15.3-44.8); MCH 30.9 pg (27.0-35.0); Monocytes % 8.7 % (3.3-12.3); RBC Red Blood Cell Count 4.22 M/uL (4.33-5.43)
[2018-07-30 10:41] LABS: Potassium 3.6 mmol/L (3.5-5.1)
--- NOTE | 2018-07-30 12:18 | EKG ---
Test Date: 2018-07-30 Test Time: 08:51:02 Scrap Breaker: SHILOH MEASUREMENT RESULTS: Intervals: Rate: 60 TX: 140 QRSD: 106 QT: 468 QTc: 468 [place]: P: 6 TX: 140 QRS: -15 T: -25 INTERPRETIVE STATEMENTS: Normal sinus rhythm Incomplete left bundle branch block Nonspecific ST and T wave abnormality Prolonged QT Abnormal ECG Compared to ECG 12/02/2017 15:22:19 Left bundle-branch block now present ST (T wave) deviation now present Prolonged QT interval now present Ventricular-paced complex(es) or rhythm no longer present First degree AV block no longer present Ventricular premature complex(es) no longer present Myocardial infarct finding no longer present Electronically Signed On 07-30-18 12:17:48 MANAGER MAINTENANCE by Kailash Aaron
--- OUTSIDE RECORDS SUMMARY | 2018-08-01 07:12 | XMS REPORT ---
:1955 Author Organization [employer] Care Team Providers Name Role Phone Girish Thayer Provider Role Unavailable Allergies No Known Allergies Problems Problem Type Condition Code Onset Dates Condition Status Assessment Prediabetes R73.03 Active Problem Chronic systolic congestive heart I50.22 Active failure Assessment PAD (peripheral artery disease) I73.9 Active Problem Coronary artery disease involving I25.10 Active [place] coronary artery of [place] heart without angina pectoris Assessment Pacemaker Z95.0 Active Problem GERD without esophagitis K21.9 Active Problem Cardiac defibrillator in place Z95.810 Active Problem Hypertensive heart disease with I11.0 Active heart failure Problem S/P CABG x 2 Z95.1 Active Problem Alcohol abuse F10.10 Active Assessment Stented coronary artery Z95.5 Active Assessment Cardiac defibrillator in place Z95.810 Active Problem Prediabetes R73.03 Active Assessment GERD without esophagitis K21.9 Active Problem Stented coronary artery Z95.5 Active Problem Mixed hyperlipidemia E78.2 Active Problem Pacemaker Z95.0 Active Problem PAD (peripheral artery disease) I73.9 Active Assessment Mixed hyperlipidemia E78.2 Active Assessment Chronic systolic congestive heart I50.22 Active failure Assessment S/P CABG x 2 Z95.1 Active Assessment Alcohol abuse F10.10 Active Problem Cardiomyopathy in disease I43 Active classified elsewhere Problem Erectile dysfunction, unspecified N52.9 Active erectile dysfunction type Assessment Hypertensive heart disease with I11.0 Active heart failure Assessment Coronary artery disease involving I25.10 Active [place] coronary artery of [place] heart without angina pectoris Medications Medication Code Code Instructions Start End Status Dosage System Date Date Simvastatin ND 55886931002 40 MG Orally Active 1 tablet Once a day in the evening Carvedilol [facility] 12616860744 6.25 MG Orally Active not defined Aspir-81 [facility] 21417266684 81 MG Orally Active 1 tablet Once a day Pantoprazole [facility] 77479108488 40 MG Orally Active 1 tablet Sodium Once a day Clopidogrel [facility] 03225870908 75 MG Orally Active 1 tablet Bisulfate Once a day Entresto 24/26mg [facility] 45759391333 24/26mg oral Active one bid Results No Known Results Summary Purpose eClinicalWorks Submission
--- OUTSIDE RECORDS SUMMARY | 2018-08-01 07:12 | XMS REPORT ---
:1955 Author Organization [employer] Care Team Providers Name Role Phone ThayerGirish Provider Role Unavailable Allergies, Adverse Reactions, Alerts Substance Reaction Event Type N.K.D.A. Info Not Available Non Drug Allergy Problems Problem Type Condition Code Onset Dates Condition Status Assessment Prediabetes R73.03 Active Assessment PAD (peripheral artery disease) I73.9 Active Assessment Pacemaker Z95.0 Active Problem Chronic systolic congestive heart I50.22 Active failure Assessment GERD without esophagitis K21.9 Active Problem Coronary artery disease involving I25.10 Active [place] coronary artery of [place] heart without angina pectoris Assessment Cardiac defibrillator in place Z95.810 Active Problem GERD without esophagitis K21.9 Active Problem Cardiac defibrillator in place Z95.810 Active Problem Hypertensive heart disease with I11.0 Active heart failure Problem S/P CABG x 2 Z95.1 Active Problem Alcohol abuse F10.10 Active Assessment Alcohol abuse F10.10 Active Assessment S/P CABG x 2 Z95.1 Active Problem Prediabetes R73.03 Active Assessment Stented coronary artery Z95.5 Active Problem Stented coronary artery Z95.5 Active Problem Mixed hyperlipidemia E78.2 Active Problem Pacemaker Z95.0 Active Problem PAD (peripheral artery disease) I73.9 Active Assessment Abdominal hernia without K46.9 Active obstruction and without gangrene, recurrence not specified, unspecified hernia type Assessment Hypertensive heart disease with I11.0 Active heart failure Assessment Mixed hyperlipidemia E78.2 Active Assessment Chronic systolic congestive heart I50.22 Active failure Problem Cardiomyopathy in disease I43 Active classified elsewhere Problem Erectile dysfunction, unspecified N52.9 Active erectile dysfunction type Assessment Coronary artery disease involving I25.10 Active [place] coronary artery of [place] heart without angina pectoris Medications Medication Code Code Instructions Start End Status Dosage System Date [facility] 61243475128 81 MG Orally Active 1 tablet Once a day Pantoprazole [facility] 56833909154 40 MG Orally Active 1 tablet Sodium Once a day Simvastatin [facility] 66997249349 40 MG Orally Active 1 tablet Once a day in the evening Clopidogrel [facility] 54348482000 75 MG Orally Active 1 tablet Bisulfate Once a day Carvedilol [facility] 52660364057 6.25 MG Orally Active not defined Entresto 24/26mg [facility] 67982889709 24/26mg oral Active one bid Results No Known Results Summary Purpose eClinicalWorks Submission
[2018-08-01] MEDS ORDERED: BUPIVACA 0.25%/EPI 0.0005% MDV 50 ML VIAL ONE (07:31)
[2018-08-01] MEDS ORDERED: FENTANYL CITR 100 MCG/2 ML ONE (07:32)
[2018-08-01] MEDS ORDERED: LIDOCAINE 1% MPF 5 ML VIAL ONE (07:32)
[2018-08-01] MEDS ORDERED: MIDAZOLAM HCL 2 MG/2 ML INJ ONE (07:32)
[2018-08-01] MEDS ORDERED: PROPOFOL 200 MG/20 ML VIAL IV ONE (07:32)
[2018-08-01] MEDS ORDERED: ROCURONIUM 50 MG/5 ML VIAL IV ONE ×2 (07:33→09:45)
[2018-08-01] MEDS ORDERED: Ringers Lactate 1,000 ML IV ONE (07:33)
[2018-08-01] MEDS ORDERED: CEFAZOLIN/SWI 1gm 1 GM/10 ML SYR ONE (07:34)
[2018-08-01] MEDS ORDERED: NS 0.9% VIAL 10 ML ONE (08:21)
[2018-08-01] MEDS ORDERED: Phenylephrine HCl 10 MG/ML 1 ML VIAL ONE (08:21)
[2018-08-01] MEDS ORDERED: ETOMIDATE 20 MG/10 ML VIAL IV ONE (09:01)
[2018-08-01] MEDS ORDERED: GLYCOPYRROLATE 0.2 MG/ML SYR ONE (09:45)
[2018-08-01] MEDS ORDERED: KETOROLAC 30 MG/ML INJ ONE (09:46)
[2018-08-01] MEDS ORDERED: ONDANSETRON 4 MG/2 ML VIAL ONE (09:46)
[2018-08-01] MEDS ORDERED: NEOSTIGMINE 1 MG/ML -5 ML SYRINGE ONE (09:46)
--- NOTE | 2018-08-01 10:00 | P.OP ---
Organ Installer: Noel Farooq Preoperative diagnosis: Multiple Ventral Abdominal Wall Hernias Postoperative diagnosis: Multiple Ventral Abdominal Wall Hernias Primary procedure: Laparoscopic Ventral Hernia Repair with Mesh Secondary procedure: Laparoscopic Adhesiolysis Anesthesia: GETA + Local Estimated blood loss: ~20cc Specimen: None Findings: Multiple ventral abdominal wall hernias, [place] cheese adomen Complications: None Implants: Bard Ventralite ST with echo position 20cm x 25 cm mesh Transferred to: Recovery Room Condition: Good
[2018-08-01] MEDS: MEPERIDINE HCL 25 MG/0.5 ML ONE ×2 (10:20→10:25)
[2018-08-01] MEDS ORDERED: HYDROCODONE/APAP 5/325 MG TAB ONE (11:25)
[2018-08-01] MEDS ORDERED: HYDROCODONE/APAP 7.5/325 MG TAB ONE (11:28)
--- NOTE | 2018-08-01 22:21 | OP ---
Date of Procedure: 08/01/2018 Surgeon: Feliberto Cortez MD, Preoperative Diagnosis: Multiple ventral abdominal wall hernias. Postoperative Diagnosis: Multiple ventral abdominal wall hernias. Procedure Performed: 1.Laparoscopic ventral hernia repair with mesh. 2.Laparoscopic adhesiolysis approximately 45 minutes to 1 hour. Anesthesia: General endotracheal plus local with 0.25% Marcaine. Estimated Blood Loss: Less than 20 cc. Specimen: None. Findings: 1.Multiple ventral abdominal wall hernias. 2.[place] cheese abdomen appearance, many of the hernias were off the midline. 3.Significant intraabdominal adhesions from the omentum to the anterior abdominal wall and contained within the hernias. 4.The patient had some bleeding from an AbsorbaTack fixation requiring suture ligation. Disposition: The patient transferred to recovery room in good condition. Procedure In Detail: After informed consent was obtained, the patient was brought to the operating r oom, prepped and draped in the usual sterile fashion. After adequate anesthesia was achieved, a left lower quadrant incision was made after appropriately anesthetizing the skin. I dissected down throu gh the subcutaneous tissues, and a 5 mm optical trocar was introduced in the abdomen without evidence of complication. Insufflation was obtained at 15 mmHg at this time. No injury to vital structures was achieved upon entry to the abdomen. The abdomen was inspected and found to have significant intr aabdominal adhesions from the omentum to the anterior abdominal wall and contained within multiple he rnias in the anterior abdominal wall. Additional trocar chosen in the left mid upper quadrant. This was similarly anesthetized, sharply incised. A 12 mm trocar was placed in the abdomen without evide nce of complication. Insufflation was ensured and reduced down to 13 mmHg at this time as the patien t has a cardiac history. The patient then had the anterior abdominal wall inspected, and the LigaSur e device was used to take down the adhesions using both blunt and LigaSure ligation and gentle pressu re and dissection to remove all of the intraabdominal adipose contents from the anterior abdominal wa ll hernias. The laparoscopic adhesiolysis took approximately 1 hour to get everything completely mob ilized and reduced to the normal anatomic position. At this point, the abdominal wall was inspected and found to be clean and clear of any adiposity that might impair mesh deployment and placement. In addition, the falciform ligament was taken slightly down to allow for a large mesh with 5 cm of over lay. The hernia defect was then sized and found to be approximately 10 cm in lateral direction by 20 cm in craniocaudal direction. The 20/[address] with Echo Positioning System was the n brought onto the field, rolled, and placed through the 12 mm lateral trocar. A small area in the c entral of the defect was then anesthetized with 0.25% Marcaine, and the Chava-Guy suture passer was used to grasp the inflation tubing, and it was brought out, and the inflation balloon system was deployed to allow for mesh placement. At this time, the mesh was aligned in the craniocaudal direct ion to ensure 5 cm of underlay at this point around the hernia defect to completely cover all of the defects. The AbsorbaTack fixation system was then used to tack approximately 15 tacks circumferentia lly around, and the balloon deployment system was then removed and found to be intact on the back tab le. Reinsufflation at this time was achieved, and a double crown system of AbsorbaTack fixation was used to secure the mesh to the anterior abdominal wall and placing some intermittently throughout the middle and central portions of the abdominal wall. Approximately, 90 absorbable tacks were used. T here was one area on the left lower quadrant where a tack had gone through apparently an arterial ves armando as it continued to pump despite pressure. This was unable to be hemostatically controlled with t hese measures. As such, a small stab incision was made with an 11 blade, and a Chava-Guy sutur e passer was used to pass an 0 Vicryl and secure and ligate this in an interrupted fashion at the lef t lower quadrant at the edge of the mesh and good hemostasis was achieved at this time. The abdomen was inspected for proper hemostasis, which was achieved at this time. The mesh was found to be in go od anatomic position, and the abdomen was partially desufflated. It was inspected once again. The 1 2 mm trocar was then removed and closed with a Chava-Guy suture passer with an 0 Vicryl in inte rrupted fashion with good approximation of tissues. The abdomen was completely desufflated under dir ect visualization without evidence of complication, and all skin incisions copiously irrigated and cl osed with 4-0 Monocryl in a running fashion. Dermabond was placed over the top. The patient tolerat ed the procedure well without evidence of complication and transferred to the PACU in good condition. All counts were correct at the end of the case. ERIN/KASSANDRA Voice ID: [id number] Report ID: [id number]
== END 2018-08-01 13:35 | disposition home or self-care (01) ==
LOC: OR 07:11
PROVIDERS: ATTEND Surgery
PROC: 0DNW4ZZ Release Peritoneum, Percutaneous Endoscopic Approach (ICD-10-PCS; 2018-08-01)
PROC: 0WUF4JZ Supplement Abdominal Wall with Synthetic Substitute, Percutaneous Endoscopic Approach (ICD-10-PCS; principal; 2018-08-01 08:30)
DX: K43.9 Ventral hernia without obstruction or gangrene (principal); K66.0 Peritoneal adhesions (postprocedural) (postinfection); I10 Essential (primary) hypertension; I25.10 Atherosclerotic heart disease of native coronary artery without angina pectoris; K21.9 Gastro-esophageal reflux disease without esophagitis; E78.5 Hyperlipidemia, unspecified; Z79.82 Long term (current) use of aspirin; Z95.1 Presence of aortocoronary bypass graft; Z95.810 Presence of automatic (implantable) cardiac defibrillator; Z87.891 Personal history of nicotine dependence; Z82.49 Family history of ischemic heart disease and other diseases of the circulatory system
CPT/HCPCS: 36415; 80051; 82565; 84520; 85025; 93005; J0690; J2175; J2250; J2370; J2405; J2704; J2710; J3010

== ENCOUNTER 2018-10-19 11:36 | Observation (INO) | payer BC ==
--- OUTSIDE RECORDS SUMMARY | 2018-10-19 11:39 | XMS REPORT ---
[...] Problem Coronary artery disease involving I25.10 Active [place] coronary artery of [place] heart without angina pectoris Assessment Cardiac defibrillator [...] Assessment Coronary artery disease involving I25.10 Active [place] coronary artery of [place] heart without angina pectoris Medications Medication Code Code Instructions Start End Status Dosage System Date [facility][NOTE 3] 75451331383 81 MG Orally Active 1 tablet Once a day Pantoprazole [facility][NOTE 3] 38462251420 40 MG Orally Active 1 tablet Sodium Once a day Simvastatin [facility]NOTE 3] 85984436916 40 MG Orally Active 1 tablet Once a day in the evening Clopidogrel [facility][NOTE 3] 09209427115 75 MG Orally Active 1 tablet Bisulfate Once a day Carvedilol [facility] 3] 38784461582 6.25 MG Orally Active not defined Entresto 24/26mg [facility][NOTE 3] 21700246486 24/26mg oral Active one bid Results No Known Results Summary Purpose eClinicalWorks Submission
--- OUTSIDE RECORDS SUMMARY | 2018-10-19 11:39 | XMS REPORT ---
:1955 Author Organization eClinicalWorks Care Team Providers Name Role Phone Girish Thayer Provider Role Unavailable Allergies No Known Allergies Problems Problem Type Condition Code Onset Dates Condition Status Assessment Prediabetes R73.03 Active Problem Chronic systolic congestive heart I50.22 Active failure Assessment PAD (peripheral artery disease) I73.9 Active Problem Coronary artery disease involving I25.10 Active [place] coronary artery of [place] heart without angina pectoris Assessment Pacemaker Z95.0 [...] Assessment Coronary artery disease involving I25.10 Active [place] coronary artery of [place] heart without angina pectoris Medications Medication Code Code Instructions Start End Status Dosage System Date Date Simvastatin ND 17705621270 40 MG Orally Active 1 tablet Once a day in the evening Carvedilol [facility] 08430872168 6.25 MG Orally Active not defined Aspir-81 [facility] 64959119887 81 MG Orally Active 1 tablet Once a day Pantoprazole [facility] 66855933703 40 MG Orally Active 1 tablet Sodium Once a day Clopidogrel [facility] 65487761771 75 MG Orally Active 1 tablet Bisulfate Once a day Entresto 24/26mg [facility] 23977779127 24/26mg oral Active one bid Results No Known Results Summary Purpose eClinicalWorks Submission
[2018-10-19] MEDS ORDERED: ASPIRIN 81 MG CHEWABLE TABLET ONE (12:19)
[2018-10-19 12:20] LABS: Absolute Lymphocytes (CBC) 0.9 K/uL (0.7-4.9); Absolute Monocytes 0.5 K/uL (0.1-1.3); Absolute Neutrophil 5.9 K/uL (1.8-8.0); Basophils % 0.3 % (0-1.3); Eosinophils % 0.5 % (0-4.4); Hematocrit 39.7 % (39.6-49.0); Lymphocytes % 11.8 % (15.3-44.8); MPV 8.6 fL (7.6-11.3); Monocytes % 7.1 % (3.3-12.3); Protime INR 1.15; RBC Red Blood Cell Count 4.37 M/uL (4.33-5.43)
[2018-10-19 12:33] LABS: ALT/SGPT 39 U/L (12-78); AST/SGOT 31 U/L (15-37); Albumin 4.1 g/dL (3.4-5.0); Alkaline Phosphatase 60 U/L (45-117); BUN Blood Urea Nitrogen 22 mg/dL (7-18); Bicarbonate 21 mmol/L (21-32); Bilirubin Direct 0.2 mg/dL (0-0.2); Bilirubin Total 0.6 mg/dL (0.2-1.0); Glucose Level 118 mg/dL (74-106); Magnesium 2.3 mg/dL (1.8-2.4); NT PRO-BNP 419 pg/mL (<125); Potassium 3.9 mmol/L (3.5-5.1); Sodium Level 136 mmol/L (136-145); Troponin (Emerg Dept Use Only) < 0.02 ng/mL (0.0-0.045)
--- NOTE | 2018-10-19 12:58 | RAD REPORT ---
EXAM DESCRIPTION: RAD - Chest Single View - 10/19/2018 12:20 pm CLINICAL HISTORY: Chest pain COMPARISON: November 2017 TECHNIQUE: AP portable chest image was obtained 1212 hours . FINDINGS: No focal lung parenchymal process. Inspiratory effort is slightly shallow. No failure or v olume overload. Sternotomy wires and defibrillator are in place. Heart size is upper normal. Heart an d vasculature are normal. No measurable pleural effusion and no pneumothorax. No acute bony abnormali ty seen. No acute aortic findings suspected. IMPRESSION: No acute cardiopulmonary process. No suspicious change from comparison.
--- NOTE | 2018-10-19 13:18 | ER ---
Nurse's Notes [facility] Name: Kingston Garcia Age: 63 yrs Sex: Male : 1955 Arrival Date: 10/19/2018 Time: 11:37 Bed 17 Private MD: Diagnosis: Chest pain, unspecified Presentation: 10/19 11:51 Presenting complaint: Patient states: Chest pain and defib event reported several weeks sg ago, pain resolved no more episodes with Defib reported, this morning the pain began again, denies N/V/D/Fever, reports having midsternal and epigastric pain similar to the pain felt with the last FL. Transition of care: patient was not received from another setting of care. Onset of symptoms was October 19, 2018. Risk Assessment: Do you want to hurt yourself or someone else? Patient reports no desire to harm self or others. Initial Sepsis Screen: Does the patient meet any 2 criteria? No. Patient's initial sepsis screen is negative. Does the patient have a suspected source of infection? No. Patient's initial sepsis screen is negative. Care prior to arrival: None. 11:51 Method Of Arrival: Ambulatory sg 11:51 Acuity: AYALA 3 sg Historical: - Allergies: 15:06 No Known Allergies; em - Home Meds: 11:54 clopidogrel 75 mg Oral tab 1 tab once daily [Active]; simvastatin 40 mg Oral tab 1 tab sg once daily [Active]; 15:06 carvedilol 6.25 mg oral tab 1 tab 2 times per day [Active]; aspirin 81 mg Oral chew em [Active]; Entresto 97-103 mg oral tab 1 tab [Active]; - PMHx: 11:54 Hyperlipidemia; Hypertension; sg - PSHx: 11:54 pacemaker; sg - Immunization history:: Adult Immunizations up to date. - Social history:: Smoking status: Patient/guardian denies using tobacco. - Ebola Screening: : Patient negative for fever greater than or equal to 101.5 degrees Fahrenheit, and additional compatible Ebola Virus Disease symptoms Patient denies exposure to infectious person Patient denies travel to an Ebola-affected area in the 21 days before illness onset No symptoms or risks identified at this time. Screenin:05 Abuse screen: Denies threats or abuse. Nutritional screening: No deficits noted. em Tuberculosis screening: No symptoms or risk factors identified. Fall Risk None identified. Assessment: 12:05 General: Appears in no apparent distress. comfortable, Behavior is calm, cooperative. em Pain: Complains of pain in anterior aspect of right upper chest Pain does not radiate. Quality of pain is described as dull, Pain began 4 hours ago. Neuro: Level of Consciousness is awake, alert, obeys commands, Oriented to person, place, time, situation. Cardiovascular: Reports chest pain, diaphoresis, Denies lightheadedness, shortness of breath, Capillary refill < 3 seconds Patient's skin is warm and dry. Rhythm is sinus rhythm. Respiratory: Airway is patent Respiratory effort is even, unlabored, Respiratory pattern is regular, symmetrical. GI: Abdomen is flat, Patient currently denies nausea, vomiting. Derm: Skin is intact, Skin is pink, warm \T\ dry. Musculoskeletal: Range of motion: intact in all extremities. 12:15 Reassessment: I agree with previous assessment. hb 13:32 Reassessment: Patient appears in no apparent distress at this time. Patient and/or em family updated on plan of care and expected duration. Pain level reassessed. Patient is alert, oriented x 3, equal unlabored respirations, skin warm/dry/pink. Patient states symptoms have not improved. 14:44 Reassessment: Patient appears in no apparent distress at this time. Patient and/or em family updated on plan of care and expected duration. Pain level reassessed. Patient is alert, oriented x 3, equal unlabored respirations, skin warm/dry/pink. Vital Signs: 11:53 BP 110 / 68; Pulse 65; Resp 15; Temp 97.7; Pulse Ox 98% on R/A; Weight 75.3 kg; Pain sg 7/10; 13:31 BP 111 / 65; Pulse 60; Resp 14; Pulse Ox 99% on R/A; Pain 5/10; em 14:45 BP 118 / 71; Pulse 60; Resp 18; Temp 98.0(O); Pulse Ox 100% on R/A; Pain 5/10; em ED Course: 11:37 Patient arrived in ED. as 11:44 Alyse Muse FNP-C [facility]. kb 11:44 Ghassan Clark MD is Attending Physician. kb 11:51 Elver Bruce LVN is Primary Nurse. em 11:53 Triage completed. sg 11:54 Arm band placed on. sg 12:05 Patient has correct armband on for positive identification. Placed in gown. Bed in low em position. Call light in reach. Side rails up X2. surveillance monitor on. Pulse ox on. NIBP on. 12:05 Initial lab(s) drawn, by me, sent to lab. Inserted saline lock: 22 gauge in left em antecubital area, using aseptic technique. Blood collected. 12:05 Patient maintains SpO2 saturation greater than 95% on room air. em 12:18 X-ray completed. Portable x-ray completed in exam room. Patient tolerated procedure ls3 well. 12:20 XRAY Chest (1 view) In Process Unspecified. EDMS 13:18 Uvaldo Ortiz MD is Hospitalizing Provider. kb 14:43 No provider procedures requiring assistance completed. Patient admitted, IV remains in em place. Administered Medications: 12:11 Drug: Aspirin Chewable Tablet 162 mg Route: PO; em 13:21 Follow up: Response: No adverse reaction em Outcome: 13:18 Decision to Hospitalize by Provider. kb 15:04 Admitted to Tele accompanied by tech, via wheelchair, room 411, with chart, Report em called to LAAZRA Goel 15:04 Condition: good 15:04 Instructed on the need for admit, Demonstrated understanding of instructions. 15:27 Patient left the ED. em Signatures: Dispatcher [employer] EDMS Alyse Muse, BUILDING MAINTENANCE SUPERVISOR-C BUILDING MAINTENANCE SUPERVISOR-Brayan Fisher RN RN sg Elver Bruce, PROCESS CONTROL PROGRAMMER PROCESS CONTROL PROGRAMMER em Jannie Mcintyre as Michelle Palomo RN RN Fredy Rizvi ls3 Corrections: (The following items were deleted from the chart) 15:06 11:54 Home Meds: carvedilol 3.125 mg Oral tab 1 tab 2 times per day; sg em 15:06 11:54 Home Meds: lisinopril 5 mg Oral tab 1 tab once daily; sg em
--- NOTE | 2018-10-19 13:19 | EDPHYS ---
Physician Documentation [facility] Name: Kingston Garcia Age: 63 yrs Sex: Male : 1955 Arrival Date: 10/19/2018 Time: 11:37 Bed 17 Private MD: ED Physician Ghassan Clark HPI: 10/19 11:52 This 63 yrs old Male presents to ER via Unassigned with complaints of Chest kb Pain. 11:52 The patient or guardian reports chest pain that is located primarily in the anterior kb chest wall, right. Onset: 2 hour(s) ago. The pain does not radiate. Associated signs and symptoms: The patient has no apparent associated signs or symptoms. The chest pain is described as dull. Duration: The patient or guardian reports a single episode, that is still ongoing. Modifying factors: The symptoms are alleviated by nothing. the symptoms are aggravated by nothing. Severity of pain: At its worst the pain was mild moderate in the emergency department the pain is unchanged. The patient has not experienced similar symptoms in the past. The patient has not recently seen a physician. 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 Reports he broke out into a sweat after the pain started and has been weak ever since then. Reports diarrhea for a few days. Denies n/v/abd pain, cough, congestion, fever. States he thinks his defibrillator went off a couple of days ago as well. . Historical: - Allergies: 15:06 No Known Allergies; em - Home Meds: 11:54 clopidogrel 75 mg Oral tab 1 tab once daily [Active]; simvastatin 40 mg Oral tab 1 tab sg once daily [Active]; 15:06 carvedilol 6.25 mg oral tab 1 tab 2 times per day [Active]; aspirin 81 mg Oral chew em [Active]; Entresto 97-103 mg oral tab 1 tab [Active]; - PMHx: 11:54 Hyperlipidemia; Hypertension; sg - PSHx: 11:54 pacemaker; sg - Immunization history:: Adult Immunizations up to date. - Social history:: Smoking status: Patient/guardian denies using tobacco. - Ebola Screening: : Patient negative for fever greater than or equal to 101.5 degrees Fahrenheit, and additional compatible Ebola Virus Disease symptoms Patient denies exposure to infectious person Patient denies travel to an Ebola-affected area in the 21 days before illness onset No symptoms or risks identified at this time. ROS: 11:51 Constitutional: Negative for fever, chills, and weight loss, ENT: Negative for injury, kb pain, and discharge, Neck: Negative for injury, pain, and swelling, Respiratory: Negative for shortness of breath, cough, wheezing, and pleuritic chest pain, Back: Negative for injury and pain, : Negative for injury, bleeding, discharge, and swelling, MS/Extremity: Negative for injury and deformity, Skin: Negative for injury, rash, and discoloration, Neuro: Negative for headache, weakness, numbness, tingling, and seizure. 11:51 Cardiovascular: Positive for chest pain, of the anterior aspect of right upper chest, Negative for edema, orthopnea, palpitations, paroxysmal nocturnal dyspnea. 11:51 Abdomen/GI: Positive for diarrhea. Exam: 11:51 Constitutional: This is a well developed, well nourished patient who is awake, alert, kb and in no acute distress. Head/Face: Normocephalic, atraumatic. ENT: Nares patent. No nasal discharge, no septal abnormalities noted. Tympanic membranes are normal and external auditory canals are clear. Oropharynx with no redness, swelling, or masses, exudates, or evidence of obstruction, uvula midline. Mucous membranes moist. Neck: Trachea midline, no thyromegaly or masses palpated, and no cervical lymphadenopathy. Supple, full range of motion without nuchal rigidity, or vertebral point tenderness. No Meningismus. Chest/axilla: Normal chest wall appearance and motion. Nontender with no deformity. No lesions are appreciated. Cardiovascular: Regular rate and rhythm with a normal S1 and S2. No gallops, murmurs, or rubs. Normal PMI, no JVD. No pulse deficits. Respiratory: Lungs have equal breath sounds bilaterally, clear to auscultation and percussion. No rales, rhonchi or wheezes noted. No increased work of breathing, no retractions or nasal flaring. Abdomen/GI: Soft, non-tender, with normal bowel sounds. No distension or tympany. No guarding or rebound. No evidence of tenderness throughout. Skin: Warm, dry with normal turgor. Normal color with no rashes, no lesions, and no evidence of cellulitis. MS/ Extremity: Pulses equal, no cyanosis. Neurovascular intact. Full, normal range of motion. Neuro: Awake and alert, GCS 15, oriented to person, place, time, and situation. Cranial nerves II-XII grossly intact. Motor strength 5/5 in all extremities. Sensory grossly intact. Cerebellar exam normal. Normal gait. Vital Signs: 11:53 BP 110 / 68; Pulse 65; Resp 15; Temp 97.7; Pulse Ox 98% on R/A; Weight 75.3 kg; Pain sg 7/10; 13:31 BP 111 / 65; Pulse 60; Resp 14; Pulse Ox 99% on R/A; Pain 5/10; em 14:45 BP 118 / 71; Pulse 60; Resp 18; Temp 98.0(O); Pulse Ox 100% on R/A; Pain 5/10; em MDM: 11:45 Patient medically screened. kb 11:51 Data reviewed: vital signs, nurses notes. Data interpreted: Pulse oximetry: on room air kb is 100 %. Interpretation: normal. 13:10 Counseling: I had a detailed discussion with the patient and/or guardian regarding: the kb historical points, exam findings, and any diagnostic results supporting the discharge/admit diagnosis, lab results, radiology results, the need for further work-up and treatment in the hospital. 13:18 Physician consultation: Uvaldo Ortiz MD was contacted at 13:18, regarding admission, to the telemetry unit. patient's condition, in the emergency department to see patient at 13:18. 10/19 11:49 Order name: Basic Metabolic Panel; Complete Time: 12:33 kb 10/19 11:49 Order name: CBC with Diff; Complete Time: 12:23 kb 10/19 11:49 Order name: LFT's; Complete Time: 12:33 kb 10/19 11:49 Order name: Magnesium; Complete Time: 12:33 kb 10/19 11:49 Order name: NT PRO-BNP; Complete Time: 12:33 kb 10/19 11:49 Order name: PT-INR; Complete Time: 12:23 kb 10/19 11:49 Order name: Troponin (emerg Dept Use Only); Complete Time: 12:33 kb 10/19 11:49 Order name: XRAY Chest (1 view); Complete Time: 13:04 kb 10/19 11:49 Order name: EKG; Complete Time: 11:50 kb 10/19 11:49 Order name: Cardiac monitoring; Complete Time: 12:11 kb 10/19 11:49 Order name: EKG - Nurse/Tech; Complete Time: 12:12 kb 10/19 11:49 Order name: IV Saline Lock; Complete Time: 12:12 kb 10/19 14:19 Order name: Diet Heart Healthy; Complete Time: 14:19 em 10/19 11:49 Order name: Labs collected and sent; Complete Time: 12:12 kb 10/19 11:49 Order name: O2 Per Protocol; Complete Time: 12:12 kb 10/19 11:49 Order name: O2 Sat Monitoring; Complete Time: 12:11 kb Administered Medications: 12:11 Drug: Aspirin Chewable Tablet 162 mg Route: PO; em 13:21 Follow up: Response: No adverse reaction em Disposition: 10/20 07:00 Co-signature as Attending Physician, Ghassan Clark MD. rn Disposition: 10/19/18 13:18 Hospitalization ordered by Uvaldo Ortiz for Observation. Preliminary diagnosis is Chest pain, unspecified. - Bed requested for Telemetry/MedSurg (observation). - Status is Observation. em - Condition is Stable. - Problem is new. - Symptoms are unchanged. UTI on Admission? No Signatures: Dispatcher [employer] EDAlyse Mina, ALLEN PAYMASTER OF PURSES-CkBrayan Easton, RN RN sg Elver Bruce, COPY PREPARER COPY PREPARER Ghassan Bustos MD MD rn Fitzgerald, Diane, RN RN df Botello, Elizabeth eb Corrections: (The following items were deleted from the chart) 10/19 14:29 13:18 Hospitalization Ordered by Uvaldo Ortiz MD for Observation. Preliminary diagnosis eb is Chest pain, unspecified. Bed requested for Telemetry/MedSurg (observation). Status is Observation. Condition is Stable. Problem is new. Symptoms are unchanged. UTI on Admission? No. kb 14:30 14:29 10/19/2018 13:18 Hospitalization Ordered by Uvaldo Ortiz MD for Observation. eb Preliminary diagnosis is Chest pain, unspecified. Bed requested for Telemetry/MedSurg (observation). Status is Observation. Condition is Stable. Problem is new. Symptoms are unchanged. UTI on Admission? No. eb 14:34 14:30 10/19/2018 13:18 Hospitalization Ordered by Uvaldo Ortiz MD for Observation. df Preliminary diagnosis is Chest pain, unspecified. Bed requested for Telemetry/MedSurg (observation). Status is Observation. Condition is Stable. Problem is new. Symptoms are unchanged. UTI on Admission? No. eb 15:06 11:54 Home Meds: carvedilol 3.125 mg Oral tab 1 tab 2 times per day; em 15:06 11:54 Home Meds: lisinopril 5 mg Oral tab 1 tab once daily; em 15:27 14:34 10/19/2018 13:18 Hospitalization Ordered by Uvaldo Ortiz MD for Observation. em Preliminary diagnosis is Chest pain, unspecified. Bed requested for Telemetry/MedSurg (observation). Status is Observation. Condition is Stable. Problem is new. Symptoms are unchanged. UTI on Admission? No. df
[2018-10-19] MEDS ORDERED: ACETAMINOPHEN 500 MG TAB PO PRN (16:09)
[2018-10-19] MEDS ORDERED: MORPHINE 4 MG/ML SYR IV PRN (16:09)
[2018-10-19] MEDS ORDERED: LORazepam 2 MG/ML VIAL IV PRN (16:09)
[2018-10-19] MEDS ORDERED: ZOLPIDEM TARTRATE 5 MG TABLET PO PRN (16:09)
[2018-10-19 16:47] VITALS: BMI 25.8
[2018-10-19] MEDS ORDERED: ENOXAPARIN 40 MG/0.4 ML SQ SCH (17:00)
[2018-10-19] MEDS: CARVEDILOL 12.5 MG TAB PO SCH (17:56)
[2018-10-19] MEDS: NA CHLORIDE 0.9% 1,000 ML IV SCH ×2 (17:57→21:12)
[2018-10-19] MEDS ORDERED: CARVEDILOL 6.25 MG TAB PO SCH (21:00)
[2018-10-19] MEDS ORDERED: ATORVASTATIN 40 MG TAB PO SCH (21:00)
[2018-10-19 22:00] LABS: Urine Appearance CLEAR; Urine Bilirubin NEGATIVE (NEG); Urine Blood NEGATIVE (NEG); Urine Color YELLOW; Urine Glucose TRACE (NEG); Urine Protein TRACE (NEG); Urine Specific Gravity 1.015 (1.005-1.030); Urine Urobilinogen 0.2 mg/dL (0.2-1.0); Urine pH 5.5 (5.0-7.0)
[2018-10-19 22:26] LABS: Urine Microscopic Reflex ORDER UMIC
[2018-10-19 22:33] LABS: Urine Bacteria NONE SEEN /HPF (NONE SEEN); Urine Culture Reflex Order NOT NEEDED; Urine RBC <5 /HPF (NONE SEEN)
--- NOTE | 2018-10-20 03:20 | HP ---
Date of Admission: 10/19/2018 Chief Complaint: Chest pain. Meter Maintenance Person: Dr. Aaron with Cardiology. Code Status: Full. History Of Present Illness: The patient is a 63-year-old male with past medical history of coronary artery disease status post CABG, stents, peripheral vascular disease status post bypass, hypertension , hyperlipidemia, alcohol dependence, who was in his usual state of health until day of admission whe n the patient has had sudden onset of right-sided chest pain. Two weeks prior to admission, the abi ent did have his defibrillator that fired. According to his barrel loader, Dr. Aaron, the report sh owed V-tach. The patient is on beta blockers. He was told to increase his dose. The patient has co nstant moderate pain. His symptoms are progressive. No alleviating factors. No aggravating factors . The patient came into the ER for his symptoms. He denied any nausea, vomiting, or diaphoresis. N o palpitations. In the ER, his workup showed negative cardiac enzyme. Initially, his creatinine was 1.91, which is above his baseline. EKG did not show any acute changes. His chest x-ray was normal. The patient was then referred for admission. When seen in the ER, he was awake, alert, oriented x3 , in some mild distress. Past Medical History: Coronary artery disease status post CABG and stents, peripheral vascular disea se status post aortofemoral bypass, hypertension, hyperlipidemia. Allergies: NO KNOWN DRUG ALLERGIES. Medications: List reviewed. Social History: The patient quit smoking after his first heart attack. Smoked for about 25 years be fore that quite heavily. The patient drinks alcohol daily, 4 beers per day. Has been drinking for s everal years. No illicit drug use. The patient is independent in his activities of daily living. C urrently employed. Family History: Positive for coronary artery disease. Review of Systems: An 11-point system reviewed, negative except as per HPI. Physical Examination: Vital Signs: Temperature 97.7, heart rate 65, blood pressure 110/68, respirations 15, O2 98% on room air. General: Awake, alert, oriented x3. Some mild distress due to pain. Appears older than stated age. HEENT: Normocephalic, atraumatic. PERRLA. EOMI. Moist mucous membranes. Oropharynx is clear. Po or dentition. Conjunctivae are anicteric. Neck: Supple. No JVD. Trachea midline. CVS: S1, S2. Regular rate and rhythm. No murmurs. Peripheral pulses present bilaterally. Respiratory: Clear to auscultation bilaterally. No wheezing or stridor. No use of accessory muscle s. Gastrointestinal: Abdomen is soft, nontender, nondistended. Positive bowel sounds. No guarding or rigidity. No palpable masses. Extremities: No clubbing, cyanosis, or edema. No calf tenderness. Neuro: Cranial nerves 2 through 12 intact grossly. 5/5 strength bilateral upper and lower extremiti es. Sensation intact to light touch. Speech is normal. Skin: Warm to touch. No rashes. Normal skin turgor. Psych: Mood is okay. Affect is full. Insight and judgment are good. Laboratory Data: Sodium 136, potassium 3.9, chloride 106, CO2 21, BUN 22, creatinine 1.91, glucose 1 18, calcium 8.3, magnesium 2.3. Troponin less than 0.02. BNP 419. INR 1.15. WBC 7.4, H and H 13.1 and 39.7, platelets 199, neutrophils 80%. Chest x-ray, personally reviewed, shows no acute cardiopu lmonary process. No suspicious change from comparison. Assessment And Plan: A 63-year-old male with: 1.Unstable angina, status post CABG, stents. We will continue with chest pain guidelines. The abi ent is on Coreg. We will increase dose to 12.5 per Cardiology recommendations. We will hold his Ent mariana due to elevated creatinine level. Continue statin and aspirin. The patient is already on Plav ix. Cardiology has been consulted. Dr. Aaron has recently evaluated the patient, and he has had a n echocardiogram. We will hold off on stress testing until he has been evaluated by Cardiology first . We will repeat cardiac enzymes and EKG. 2.Ventricular tachycardia with subsequent defibrillator firing. The patient's defibrillator was summer luated 2 weeks ago when it was fired. Dr. Aaron stated that it showed ventricular tachycardia. We will increase dose of beta rylee. Continue on telemetry. 3.Essential hypertension. Continue home medications. 4.Hyperlipidemia. Continue statin. 5.Peripheral vascular disease status post aortobifemoral bypass. 6.Coronary artery disease status post CABG and stent, [place] artery and [place] heart with angina. 7.Alcohol dependence. We will start on Ativan p.r.n. We will monitor for signs of alcohol withdraw al with CIWA protocol. Plan: Admit the patient to Med-Surg, place as observation. LATRICIA Voice ID: [id number]
[2018-10-20] MEDS: CARVEDILOL 12.5 MG TAB PO SCH (05:02)
[2018-10-20 06:30] LABS: Potassium 4.3 mmol/L (3.5-5.1)
[2018-10-20] MEDS ORDERED: PANTOPRAZOLE 40MG TABLET PO SCH (06:30)
--- NOTE | 2018-10-20 07:07 | EKG ---
Test Date: 2018-10-19 Test Time: 11:58:57 Bow Maker Machine Tender: JULIET MEASUREMENT RESULTS: Intervals: Rate: 60 OR: 234 QRSD: 138 QT: 472 QTc: 472 [place]: P: 43 OR: 234 QRS: -21 T: -7 INTERPRETIVE STATEMENTS: Atrial-paced rhythm with prolonged AV conduction Nonspecific intraventricular block Nonspecific T wave abnormality Abnormal ECG Compared to ECG 07/30/2018 08:51:02 T-wave abnormality now present Sinus rhythm no longer present Left bundle-branch block no longer present ST (T wave) deviation no longer present Prolonged QT interval no longer present Electronically Signed On 10-20-18 07:05:02 FIELDWORK COORDINATOR by Kailash Aaron
[2018-10-20 07:09] LABS: Absolute Lymphocytes (CBC) 1.1 K/uL (0.7-4.9); Absolute Monocytes 0.5 K/uL (0.1-1.3); Absolute Neutrophil 3.7 K/uL (1.8-8.0); Basophils % 0.5 % (0-1.3); Eosinophils % 0.6 % (0-4.4); Hematocrit 36.7 % (39.6-49.0); Lymphocytes % 20.6 % (15.3-44.8); MPV 8.8 fL (7.6-11.3); Monocytes % 9.7 % (3.3-12.3); RBC Red Blood Cell Count 4.07 M/uL (4.33-5.43)
[2018-10-20] MEDS ORDERED: THIAMINE HCL 100 MG TABLET PO SCH (09:00)
[2018-10-20] MEDS ORDERED: AMIODARONE HCL 200 MG TAB PO SCH (09:00)
[2018-10-20] MEDS ORDERED: CLOPIDOGREL 75 MG TABLET PO SCH (09:00)
[2018-10-20] MEDS ORDERED: ASPIRIN EC 81 MG TAB PO SCH (09:00)
[2018-10-20] MEDS ORDERED: FOLIC ACID 1 MG TABLET PO SCH (09:00)
[2018-10-20 10:07] VITALS: O2SAT 97
[2018-10-20] MEDS: NA CHLORIDE 0.9% 1,000 ML IV SCH (11:00)
[2018-10-20 13:16] VITALS: BP 104/57; TEMP 98.4
--- NOTE | 2018-10-21 03:32 | DS ---
Date of Discharge: 10/20/2018 Metal Stud Framer: Dr. Aaron with Cardiology. Procedures: None. Discharge Diagnoses: 1.Unstable angina, acute coronary syndrome ruled out. 2.Recent defibrillator firing secondary to ventricular tachycardia. Beta-rylee dose increased. 3.Essential hypertension, stable. 4.Mixed hyperlipidemia, statin. 5.Peripheral vascular disease, status post aortobifemoral bypass, Plavix. 6.Coronary artery disease status post coronary artery bypass graft and stent, nikolai artery and martha ve heart with angina, resolved, atypical angina. 7.Acute dehydration. 8.Acute kidney injury, improving. 9.Alcohol dependent. Hospital Course: The patient is a 63-year-old male with past medical history of coronary artery dise ase status post CABG, stents, peripheral vascular disease status post bypass, hypertension, hyperlipi demia, alcohol dependence, comes in with right-sided chest pain. He has also had some dehydration, d ecreased p.o. intake, nausea, vomiting and diarrhea. The patient's initial workup was negative for c ardiac enzymes. His creatinine was elevated at 1.91, which was above his baseline. The patient was admitted to rule out ACS due to his significant history of heart disease. Cardiac enzymes were negat nayely. He has recently had echocardiogram and stress test by Cardiology, therefore, no further workup was recommended by Dr. Aaron. His symptoms resolved. Chest pain subsided, which was right-sided. The patient's workup for ACS showed negative troponin levels x3 and ACS was ruled out. Likely, has some stress due to acute dehydration. The patient's creatinine improved with IV hydration. He was counseled to remain hydrated and to avoi d any physical exertion over the next couple of days. Instructed to have repeat BMP in a week. The patient was then discharged home in a stable condition. Activity: As tolerated. Medications: As per medication reconciliation list. Followup: Follow up with primary care physician in 2-3 days. Follow up with press operator meat, Dr. Shy gagnon in 2 weeks. Return to ER for worsening condition. Repeat BMP in 1 week. Diet: Heart healthy, fluid-restricted diet. Activity: As tolerated. No strenuous activity. Physical Examination: General: Awake, alert, oriented x3. No acute distress. CV: S1, S2. No murmurs. Respiratory: Moving air well bilaterally. Abdomen: Soft, nontender, nondistended. Positive bowel sounds. Extremities: No clubbing, cyanosis or edema. Neuro: Nonfocal. SA/MODL Voice ID: [id number] Report ID: [id number]
--- NOTE | 2018-10-22 03:28 | CON ---
Date of Consultation: 10/20/2018 Reason For Consultation: Chest pain. History Of Present Illness: Mr. Garcia is a 63-year-old white male, who is very well known to me fr om previous office visits and admissions. He has a history of coronary artery disease. He is status post coronary artery bypass surgery. He has chronic systolic congestive heart failure and ischemic cardiomyopathy with an ejection fraction of 22%. He has a pacemaker and defibrillator. He has a his tory of dyslipidemia as well as atrial fibrillation. What he really came in with is what sounds like a viral gastroenteritis. He had mid epigastric chest pain with nausea, vomiting, diarrhea for 2-3 d ays. He seems to have got that after he ate some food. Denied PND, orthopnea, pedal edema, palpitat ions, or syncope. His troponin was negative. His BNP was 419. His creatinine was 1.91. EKG showed a paced rhythm. Last catheterization was in November of 2017, showing patent grafts. Medical therapy was recommended. Allergies: NONE. Review of Systems: Negative. Social History: Negative. Family History: Negative. Medications: At home include Entresto, Coreg, Prilosec, amiodarone, aspirin, Plavix, and Zocor. Physical Examination: General: Mr. Garcia was pleasant, in no acute distress. Sinus rhythm with paced beats occasionally , afebrile. HEENT: Negative. Neck: Supple without any bruit, lymphadenopathy, JVD, or thyromegaly. Chest: Clear to auscultation and percussion. Cardiac: Revealed a paced rhythm. No murmurs, gallops, or rubs. Abdomen: Benign. Extremities: Revealed no clubbing, cyanosis, or edema. Diagnostic Data: As stated earlier. Impression And Plan: 1.Atypical chest pain, secondary to viral gastroenteritis. I believe Mr. Garcia, if anything, is d ehydrated, causing his creatinine to elevate. I do not think we are dealing with an acute coronary s yndrome. He just had a catheterization less than a year ago. I do not recommend any cardiac testing . symptoms go away. 2.Ischemic cardiomyopathy, ejection fraction of 22%. Chronic systolic congestive heart failure, sta tus post pacemaker and defibrillator, recently checked at the office to be okay. 3.Coronary artery disease, status post coronary artery bypass grafting. 4.Gastroesophageal reflux disease. 5.Atrial fibrillation, that has resolved on amiodarone and aspirin. Finally, the patient has histor y of dyslipidemia, well controlled on Zocor. I would hydrate Mr. Garcia gently, send him home whene durga it is okay with Dr. Ortiz, and I will see him in the office in the next 2-3 weeks. WILMAN/KASSANDRA Voice ID: [id number] Report ID: [id number]
== END 2018-10-20 13:00 | disposition home or self-care (01) ==
LOC: ER 11:36 → ERHOLD 14:21 → 4TH 14:59
PROVIDERS: ADMIT Family Medicine; ATTEND Family Medicine
DX: I25.110 Atherosclerotic heart disease of native coronary artery with unstable angina pectoris (principal); I73.9 Peripheral vascular disease, unspecified; F10.20 Alcohol dependence, uncomplicated; E86.0 Dehydration; N17.9 Acute kidney failure, unspecified; I10 Essential (primary) hypertension; E78.2 Mixed hyperlipidemia; Z95.810 Presence of automatic (implantable) cardiac defibrillator; Z95.5 Presence of coronary angioplasty implant and graft; Z95.1 Presence of aortocoronary bypass graft
CPT/HCPCS: 36415; 71045; 80048; 80061; 80076; 81003; 81015; 83735; 83880; 84484; 85025; 85610; 93005; 94760; 99285; G0378; J1650; J7030